=== PATIENT | female | born 1995 | race Caucasian/White ===

== ENCOUNTER 2017-12-05 16:37 | Emergency (ER) | payer BC ==
[~2017-12-05] VITALS: Ht 167.6 cm; Wt 63.0 kg
[2017-12-05 16:58] VITALS: TEMP 36.8; Ht 167.6 cm; Wt 63.0 kg
[2017-12-05] MEDS ORDERED: ONDANSETRON INJ 2 MG/ML 2 ML VIAL IV STA (17:17)
--- NOTE | 2017-12-05 17:21 | EMERGENCY ROOM VISIT NOTE ---
History First contact with patient: 17:06 Chief Complaint: ILLNESS Stated Complaint: VOMITING FOR 4 DAYS, NAUSEA, DIARRHEA, CAN'T EAT History of Present Illness The patient is a 22 year old female who presents to the Emergency Room with complaints of nausea, vomiting and diarrhea for 4 days. It started with vomiting. 2 days later, she had significant diarrhea. She describes some abdominal cramping associated with her bowel movements. She has felt body aches and chills. She did not take her temperature at home. She is having difficulty keeping water and toast down. She feels weak and dehydrated. No sick contacts. Review of Systems 10 system review performed and negative unless noted in HPI or below Past Medical/Surgical History Ace teeth extraction Social History Smoking Status: Never Smoker Occupation Status: [employer] student Current/Historical Medications Scheduled Control Pills ( Control Pills), 1 TAB PO DAILY Ondasetron Odt (Zofran Odt), 4 MG SL Q6H Physical Exam Vital Signs Date Time Temp Pulse Resp B/P (MAP) Pulse Ox O2 Delivery O2 Flow Rate FiO2 12/05/17 20:59 82 18 114/74 98 Room Air 12/05/17 19:38 83 18 114/74 97 Room Air 12/05/17 16:58 36.8 91 18 134/98 98 Room Air Physical Exam VITALS: Vitals are noted on the nurse's note and reviewed by myself. Vital signs stable. GENERAL: 22-year-old female, in no acute distress, nondiaphoretic, well- developed well-nourished. SKIN: The skin was without rashes, erythema, edema, or bruising. HEAD: Normocephalic atraumatic. MOUTH: Mucous membranes moderately dry. NECK: Supple without nuchal rigidity. No lymphadenopathy. Cervical spine is nontender. No JVD. HEART: Regular rate and rhythm without murmurs gallops or rubs. LUNGS: Clear to auscultation bilaterally without wheezes, rales or rhonchi. No accessory muscle use. ABDOMEN: Positive bowel sounds x 4.Soft, nontender, without organomegaly. No guarding or rebound tenderness. MUSCULOSKELETAL: No muscle atrophy, erythema, or edema noted. Strength 5/5 throughout. NEURO: Patient was alert and oriented to person place and time. Normal sensation to touch. No focal neurological deficits. Medical Decision & Procedures Laboratory Results 12/05/17 17:30 Red Blood Count 4.57, Mean Corpuscular Volume 91.0, Mean Corpuscular Hemoglobin 30.0, Mean Corpuscular Hemoglobin Concent 32.9, Mean Platelet Volume 10.3, Neutrophils (%) (Auto) 63.2, Lymphocytes (%) (Auto) 27.0, Monocytes (%) (Auto) 9.1, Eosinophils (%) (Auto) 0.3, Basophils (%) (Auto) 0.3, Neutrophils # (Auto) 5.42, Lymphocytes # (Auto) 2.32, Monocytes # (Auto) 0.78, Eosinophils # (Auto) 0.03, Basophils # (Auto) 0.03 12/05/17 17:30 Test 12/05/17 17:30 White Blood Count 8.59 K/uL (4.8-10.8) Red Blood Count 4.57 M/uL (4.2-5.4) Hemoglobin 13.7 g/dL (12.0-16.0) Hematocrit 41.6 % (37-47) Mean Corpuscular Volume 91.0 fL (80-100) Mean Corpuscular Hemoglobin 30.0 pg (25-34) Mean Corpuscular Hemoglobin Concent 32.9 g/dl (32-36) Platelet Count 324 K/uL (130-400) Mean Platelet Volume 10.3 fL (7.4-10.4) Neutrophils (%) (Auto) 63.2 % Lymphocytes (%) (Auto) 27.0 % Monocytes (%) (Auto) 9.1 % Eosinophils (%) (Auto) 0.3 % Basophils (%) (Auto) 0.3 % Neutrophils # (Auto) 5.42 K/uL (1.4-6.5) Lymphocytes # (Auto) 2.32 K/uL (1.2-3.4) Monocytes # (Auto) 0.78 K/uL (0.11-0.59) Eosinophils # (Auto) 0.03 K/uL (0-0.5) Basophils # (Auto) 0.03 K/uL (0-0.2) RDW Standard Deviation 44.0 fL (36.4-46.3) RDW Coefficient of Variation 13.3 % (11.5-14.5) Immature Granulocyte % (Auto) 0.1 % Immature Granulocyte # (Auto) 0.01 K/uL (0.00-0.02) Urine Color DK YELLOW Urine Appearance CLOUDY (CLEAR) Urine pH 7.0 (4.5-7.5) Urine Specific [place] 1.026 (1.000-1.030) Urine Protein TRACE (NEG) Urine Glucose (UA) NEG (NEG) Urine Ketones 2+ (NEG) Urine Occult Blood NEG (NEG) Urine Nitrite NEG (NEG) Urine Bilirubin NEG (NEG) Urine Urobilinogen NEG (NEG) Urine Leukocyte Esterase SMALL (NEG) Urine WBC (Auto) 5-10 /hpf (0-5) Urine RBC (Auto) 0-4 /hpf (0-4) Urine Hyaline Casts (Auto) 10-30 /lpf (0-5) Urine Epithelial Cells (Auto) >30 /lpf (0-5) Urine Bacteria (Auto) 2+ (NEG) Urine Mucus PRESENT (NONE PRSENT) Urine Test NEG (NEG) Anion Gap 9.0 mmol/L (3-11) Est Creatinine Clear Calc Drug Dose 111.0 ml/min Estimated GFR () 132.1 Estimated GFR (Non- 113.9 BUN/Creatinine Ratio 10.6 (10-20) Calcium Level 9.5 mg/dl (8.5-10.1) Total Bilirubin 0.8 mg/dl (0.2-1) Aspartate Amino Transf (AST/SGOT) 16 U/L (15-37) Alanine Aminotransferase (ALT/SGPT) 19 U/L (12-78) Alkaline Phosphatase 39 U/L (45-117) Total Protein 9.3 gm/dl (6.4-8.2) Albumin 4.4 gm/dl (3.4-5.0) Globulin 4.9 gm/dl (2.5-4.0) Albumin/Globulin Ratio 0.9 (0.9-2) Medications Administered Medications (Trade) Dose Ordered Sig/Anabella Route Start Time Stop Time Status Last Admin Dose Admin Sodium Chloride 1,000 ml @ 999 mls/hr Q1H1M ONCE IV 12/05/17 17:30 12/05/17 18:30 DC 12/05/17 17:30 999 MLS/HR Ondansetron HCl (Zofran Inj) 4 mg NOW STAT IV 12/05/17 17:17 12/05/17 17:18 DC 12/05/17 17:53 4 MG Potassium Chloride (Kcl 10 Meq / Wtr) 10 meq NOW STAT IV 12/05/17 18:17 12/05/17 18:18 DC 12/05/17 19:33 10 MEQ Sodium Chloride 500 ml @ 999 mls/hr Q31M STAT IV 12/05/17 19:31 12/05/17 20:01 DC 12/05/17 19:33 999 MLS/HR ED Course Patient was seen and examined Vital signs including blood pressure were reviewed medications list was verified with patient Labs were obtained, and a saline lock was established The patient was given Zofran 4 mg IV and hydrated with 1 L of normal saline The patient was also order potassium chloride 10 mEq IV. She was ordered another 500 mL bolus. Upon reevaluation, the patient was feeling much better. She was tolerating water. She denied any nausea. We discussed her workup. She voiced understanding. I reviewed discharge instructions the patient. They voiced understanding and had no further questions. Medical Decision Differential diagnosis: Viral gastroenteritis, bacterial gastroenteritis, bowel obstruction, inflammatory bowel disease This patient is a 22-year-old female that presents to the emergency department with nausea, vomiting and diarrhea. On exam, she is dehydrated. Her abdomen is benign. She is afebrile. Her labs reveal hypokalemia. Otherwise, they were fairly unremarkable. There is no leukocytosis. I do not suspect an acute abdomen. The patient's potassium was repleted in the emergency department. She had good symptomatic relief. I believe she likely has a viral GI illness. She is stable to be discharged home. She will follow a clear liquid diet tonight, and advance to a bland diet tomorrow as tolerated. She was given a short prescription of Zofran. She was instructed to follow-up with [facility] if her symptoms do not resolve in the next 3-5 days. She agrees to return to the emergency department with any new, worsening or concerning symptoms. This chart was completed in part utilizing [employer] Speech Voice Recognition software. Attempts were made to minimize the grammatical errors, random word insertions, pronoun errors and incomplete sentences. Any formal questions or concerns about the content, text or information contained within the body of this dictation should be directly addressed to the provider for clarification. Impression Primary Impression: Vomiting and diarrhea Additional Impression: Hypokalemia Departure Information Dispostion Home / Self-Care Condition GOOD Prescriptions Ondasetron Odt (ZOFRAN ODT) 4 Mg Tab 4 MG SL Q6H for Nausea, #15 TAB Prov: Marly Meade PA-C 12/05/17 Referrals No Doctor, Assigned (PCP) Patient Instructions ED Diet Vomiting Diarrhea, [facility] Additional Instructions You have been evaluated in the emergency department for vomiting and diarrhea. This is likely due to a viral GI illness that will have to run its course. Please follow a clear liquid diet tonight. This consists of broth, sports drinks such as Gatorade, water, etc. If you are feeling better tomorrow, please advance to a bland diet such as crackers and toast. Zofran 1 tab under the tongue every 6 hours as needed for nausea Ibuprofen 600 mg and/or Tylenol 1000 mg every 8 hours as needed for pain or fever You may also alternate these medications for more effective pain relief: Ibuprofen --4 HRS--> Tylenol --4 HRS--> ibuprofen --4 HRS--> Tylenol .... Please follow-up with [facility] services if your symptoms do not completely resolve in the next 3-5 days Do not hesitate to return to the emergency department with any new, worsening or concerning symptoms; especially, severe abdominal pain, increasing fever or uncontrollable vomiting School Instructions Return To School: 1 day Problem Qualifiers
[2017-12-05] MEDS ORDERED: SODIUM CHLORIDE 0.9% 1000ML 1,000 ML IV ONE (17:30)
[2017-12-05] MEDS ORDERED: BCPILLS PO (17:45)
[2017-12-05 17:53] LABS: BASO % 0.3 %; BASO ABS # 0.03 K/uL (0-0.2); EOS % 0.3 %; EOS ABS # 0.03 K/uL (0-0.5); HEMATOCRIT 41.6 % (37-47); HEMOGLOBIN 13.7 g/dL (12.0-16.0); IG# 0.01 K/uL (0.00-0.02); LYMPH ABS # 2.32 K/uL (1.2-3.4); MEAN CORPUSCULAR HGB CONC 32.9 g/dl (32-36); MEAN PLATELET VOLUME 10.3 fL (7.4-10.4); MONO % 9.1 %; MONO ABS # 0.78 K/uL (0.11-0.59); NEUT % 63.2 %; NEUT ABS # 5.42 K/uL (1.4-6.5); PLATELET COUNT 324 K/uL (130-400); RED CELL DISTRIBUTION WIDTH CV 13.3 % (11.5-14.5); WHITE BLOOD COUNT 8.59 K/uL (4.8-10.8)
[2017-12-05 18:12] LABS: ALBUMIN 4.4 gm/dl (3.4-5.0); CALCIUM 9.5 mg/dl (8.5-10.1); CREATININE 0.75 mg/dl (0.60-1.20)
[2017-12-05 18:15] LABS: TOTAL PROTEIN 9.3 gm/dl (6.4-8.2)
[2017-12-05] MEDS ORDERED: POTASSIUM CHLORIDE 10 MEQ / 100ML WTR IV STA (18:17)
[2017-12-05] MEDS ORDERED: SODIUM CHLORIDE 0.9% 500ML 500 ML IV STA (19:31)
[2017-12-05] MEDS ORDERED: ONDA4TAB10 SL (20:39)
[2017-12-05] MEDS ORDERED: ONDANSETRON HOME PACK 4MG OD TAB PO ONE (20:45)
[2017-12-05 20:59] VITALS: BP 114/74; PULSE 82; O2SAT 98
== END 2017-12-05 21:03 | disposition home or self-care (01) ==
LOC: C.EDB 16:42 → C.EDC 21:03
DX: R11.2 Nausea with vomiting, unspecified (principal); R19.7 Diarrhea, unspecified; E87.6 Hypokalemia; Z98.818 Other dental procedure status